=== PATIENT | female | born 1970 | race Two or more races ===

== ENCOUNTER 2019-08-18 16:59 | Emergency (ER) | payer OTHER ==
[~2019-08-18] VITALS: Ht 144.8 cm; Wt 54.4 kg
[2019-08-18 17:22] VITALS: BP 117/79
[2019-08-18] MEDS ORDERED: BACLOFEN 10 MG TAB PO ONE (19:30)
== END 2019-08-18 19:54 | disposition home or self-care (01) ==
LOC: ER 17:04 → EDBD 17:04 → ER 19:52
DX: S60.211A Contusion of right wrist, initial encounter (principal); M62.838 Other muscle spasm; M54.2 Cervicalgia; W00.0XXA Fall on same level due to ice and snow, initial encounter; Y93.89 Activity, other specified; Y92.89 Other specified places as the place of occurrence of the external cause; Y99.8 Other external cause status
CPT/HCPCS: 72040; 73100; 73120

== ENCOUNTER 2024-08-02 12:25 | Emergency (ER) | payer OTHER ==
[~2024-08-02] VITALS: Ht 154.9 cm; Wt 57.7 kg
[2024-08-02] MEDS: MECLIZINE HCL 25 MG TAB PO ONE (14:55)
--- NOTE | 2024-08-02 15:09 | DVH ---
EXAM: CT HEAD WITHOUT CONTRAST HISTORY: black COMPARISON: None TECHNIQUE: Axial images of the head were obtained and reformatted in coronal and sagittal planes. All CT scans at this medical facility are performed using dose modulation techniques as appropriate t o a performed exam including the following: Automated exposure control was utilized; adjustment of th e MA and/or KV according to patient size; and use of iterative reconstruction technique. CT Dose: CTDI volume is 54 mGy. Dose-length product is 963 mGy*cm FINDINGS: There is no evidence of acute intracranial hemorrhage, mass, mass effect midline shift. There is no h ydrocephalus or extra-axial fluid collection. Cuevas-white matter differentiation is maintained. The visualized paranasal sinuses and mastoid air cells are clear. The calvarium is intact. IMPRESSION: 1. No acute intracranial process. HS:Y
--- NOTE | 2024-08-02 16:11 | ED.PDOC ---
History of Present Illness HPI Comments This is a 54-year-old female who comes in with chief complaint of some dizziness. The patient states that the symptoms started this morning. She states that when she bends over the room seems to start spinning. The patient denies any chest pain or shortness for breath. The patient denies any vomiting or diarrhea. She denies any type of head trauma. Chief Complaint: Dizziness Time Seen by MD: 12:28 Primary Care Provider: DONELL Reviewed Notes: Nurses Notes, Medications, Allergies (No allergies to medications) Allergies: Coded Allergies: NO KNOWN ALLERGIES (Unverified , 08/18/19) Home Meds Active Scripts Meclizine HCl (Antivert) 25 Mg Chw, 25 MG PO BID for 7 Days, #14 TAB.CHEW Prov:ELYSE COYNE MD 08/02/24 Information Source: Patient Mode of Arrival: Ambulatory Severity: Mild Timing: Hours (Started this morning) Duration: Since onset Prehospital treatment: None Associated signs and symptoms The patient has not anterior forehead headache Past Medical History PAST MEDICAL HISTORY: GERD, High Lipids Surgical History: 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 IMAGE ASSEMBLER History Family History Family History: No family hx of Cancer, No family hx of DM, No family hx of Heart juliana, No family hx of HTN, No family hx ofKidney juliana, No family hx of Liver juliana, No family hx of Lung juliana, No family hx of Stroke Social History Smoker: Non-Smoker Alcohol: Denies ETOH Use Drugs: Denies Drug Use Lives In: Home Constitutional: denies: chills, diaphoresis, fatigue, fever, malaise, sweats, weakness, others EENTM: denies: blurred vision, double vision, ear bleeding, ear discharge, ear drainage, ear pain, ear ringing, eye pain, eye redness, hearing loss, mouth pain, mouth swelling, nasal discharge, nose bleeding, nose congestion, nose pain, photophobia, tearing, throat pain, throat swelling, voice changes, others Respiratory: denies: cough, hemoptysis, orthopnea, SOB at rest, shortness of breath, SOB with excertion, stridor, wheezing, others Cardiovascular: denies: chest pain, dizzy spells, diaphoresis, Dyspnea on exertion, edema, irregular heart beat, left arm pain, lightheadedness, palpitations, PND, syncope, others Gastrointestinal: denies: abdomen distended, abdominal pain, blood streaked bowels, constipated, diarrhea, dysphagia, difficulty swallowing, hematemesis, melena, nausea, poor appetite, poor fluid intake, rectal bleeding, rectal pain, vomiting, others Genitourinary: denies: abnormal vagina bleeding, burning, dyspareunia, dysuria, flank pain, frequency, hematuria, incontinence, pain, , vagina discharge, urgency, others Neurological: reports: dizziness, headache; denies: fainting, left sided numbness, left sided weakness, numbness, paresthesia, pre-existing deficit, right sided numbness, right sided weakness, seizure, speech problems, tingling, tremors, weakness, others Musculoskeletal: denies: back pain, gout, joint pain, joint swelling, muscle pain, muscle stiffness, neck pain, others Integumetry: denies: bruises, change in color, change in hair/nails, dryness, laceration, lesions, lumps, rash, wounds, others Allergic/Immunocompromised: denies: Difficulty Healing, Frequent Infections, Hives, Itching, others Hematologic/Lymphatic: denies: anemia, blood clots, easy bleeding, easy bruising, swollen glands, others Endocrine: denies: excessive hunger, excessive sweating, excessive thirst, excessive urination, flushing, intolerance to cold, intolerance to heat, unexplained weight gain, unexplained weight loss, others Psychiatric: denies: anxiety, bipolar disorder, depression, hopeless, panic disorder, schizophrenia, sleepless, suicidal, others Physical Exam General Appearance: No Apparent Distress HEENT: Normal ENT Inspection, Pharynx Normal, TMs Normal Neck: Full Range of Motion, Non-Tender, Normal, Normal Inspection Respiratory: Chest Non-Tender, Lungs Clear, No Accessory Muscle Use, No Re spiratory Distress, Normal Breath Sounds Cardiovascular: No Edema, No JVD, No Murmur, No Gallop, Normal Peripheral Pulses, Regular Rate/Rhythm Breast Exam: Deferred Gastrointestinal: No Organomegaly, Non Tender, No Pulsatile Mass, Normal Bowel Sounds, Soft Genitalia: Deferred Pelvic: Deferred Rectal: Deferred Extremities: No calf tenderness, Normal capillary refill, Normal inspection, Normal range of motion, Non-tender, No pedal edema Musculoskeletal : Apperance: Normal Neurologic: Alert, valet attendant II-XII nml as Tested, No Motor Deficits, Normal Affect, Normal Mood, No Sensory Deficits Cerebellar Function: Normal Reflexes: Normal Skin: Dry, Normal Color, Warm Lymphatic: No Adenopathy Was a procedure done? Was a procedure done?: No EKG EKG : Pulse Rate (adult): 80 [place]: Normal Cardiac Rhythm: NSR Block: None ST: Nonsp Differential Dx Considerations may include: Generalized weakness, dizziness, vertigo, UTI, CVA X-Ray, Labs, Meds, VS Vital Signs Date Time Temp Pulse Resp B/P (MAP) Pulse Ox O2 Delivery O2 Flow Rate FiO2 08/02/24 16:11 80 08/02/24 14:57 98.1 75 16 110/66 (81) 98 98.1 08/02/24 14:57 75 16 98 Room Air 08/02/24 13:19 80 08/02/24 13:11 98.0 79 18 116/59 (78) 100 Lab Test 08/02/24 12:50 Range/Units POC Glucose 145 H 70-106 mg/dl Current Medications Medications (Trade) Dose Ordered Sig/Micky Route Start Time Stop Time Status Last Admin Meclizine HCl (Antivert Tablet) 25 mg ONCE ONCE PO 08/02/24 14:45 08/02/24 14:46 DC 08/02/24 14:55 The patient was given meclizine 25 mg by mouth The patient is being discharged at this time The CT scan of the head is negative The patient will return to the emergency department's the condition worsens. Images Reviewed?: Images reviewed and evaluated by me Time of 1ST Reevaluation: 16:09 Reevaluation 1ST: Unchanged Patient Education/Counseling: Diagnosis, Treatment, Prognosis, Need For Follow Up Family Education/Counseling: No Family Present Departure 1 Departure Time of Disposition: 16:10 Impression: Primary Impression: Vertigo Disposition: 01 HOME / SELF CARE / HOMELESS Condition: Fair e-Prescriptions Meclizine HCl (Antivert) 25 Mg Chw 25 MG PO BID for 7 Days, #14 TAB.CHEW Prov: ELYSE COYNE MD 08/02/24 Discharged With: Self Critical Care Note Critical Care Time?: No Stability Stability form required: No Heart Score Heart Score: Heart Score Response (Comments) Value History N/A 0 EKG N/A 0 Age N/A 0 Risk Factors N/A 0 Troponin N/A 0 Total 0 ELYSE COYNE MD Aug 02, 2024 16:11
[2024-08-02] MEDS ORDERED: MECL25CH85 PO (16:12)
[2024-08-02 16:43] VITALS: BP 124/77; PULSE 81; RESP 17; TEMP 98.4; O2SAT 97
--- NOTE | 2024-08-02 18:27 | ECG ---
[facility] Test Date: 2024-08-02 Test Time: 12:54:38 Pat Name: DANII CABRAL Department: ER Room: Gender: F Installation Supervisor: STEPHANY : 1970 Requested By: ELYSE COYNE Order Number: [id number] Reading MD: Cezar Mcnulty Measurements Intervals [place] Rate: 80 P: 59 NV: 135 QRS: 242 QRSD: 97 T: -48 QT: 380 QTc: 439 Interpretive Statements Sinus rhythm Right superior axis Low voltage, precordial leads Borderline T abnormalities, diffuse leads Electronically Signed On 08-04-2024 12:44:38 PST by Cezar Mcnulty Please click the below link to view image of tracing.
== END 2024-08-02 16:52 | disposition home or self-care (01) ==
LOC: ER 12:25
DX: R42 Dizziness and giddiness (principal); K21.9 Gastro-esophageal reflux disease without esophagitis; R94.31 Abnormal electrocardiogram [ECG] [EKG]
CPT/HCPCS: 70450; 82962; 93005; 99284; J8597